=== PATIENT | female | born 1995 | race Hispanic/Latino ===

== ENCOUNTER 2023-01-21 22:08 | Day surgery (SDC) | payer OTHER ==
[2023-01-21 22:30] VITALS: BMI 29.9
[2023-01-21 23:09] LABS: Fetal Membranes Rupture No Membranes Rupture (No Rupture)
[2023-01-21] MEDS ORDERED: hydrALAZINE 20 MG/ML VIAL SLOW IVP PRN (23:22)
== END 2023-01-22 00:10 | disposition home or self-care (01) ==
LOC: CSHLD/OP 22:08
PROVIDERS: ATTEND Family Medicine
DX: O99.353 Diseases of the nervous system complicating pregnancy, third trimester (principal); R42 Dizziness and giddiness; Z3A.37 37 weeks gestation of pregnancy
CPT/HCPCS: 84112; 99283

== ENCOUNTER 2023-01-27 19:41 | Day surgery (SDC) | payer OTHER | END 2023-01-27 22:25 | disposition home or self-care (01) | LOC: CSHLD/OP 19:41 | PROVIDERS: ATTEND Family Medicine | DX: O47.1 False labor at or after 37 completed weeks of gestation (principal); Z79.899 Other long term (current) drug therapy; Z3A.37 37 weeks gestation of pregnancy | CPT/HCPCS: 99283 ==

== ENCOUNTER 2023-02-05 13:47 | Inpatient (IN) | payer OTHER ==
[2023-02-05] MEDS ORDERED: hydrALAZINE 20 MG/ML VIAL SLOW IVP PRN ×2 (15:01→23:02)
[2023-02-05] MEDS ORDERED: Promethazine HCl 25 MG/ML VIAL IM PRN (16:12)
[2023-02-05] MEDS ORDERED: Ibuprofen 800 MG TAB PO PRN (16:12)
[2023-02-05] MEDS ORDERED: Acetaminophen 500 MG TAB PO PRN (16:12)
[2023-02-05] MEDS ORDERED: fentaNYL 50 mcg/mL 1 mL Vial SLOW IVP PRN (16:12)
[2023-02-05] MEDS ORDERED: Docusate 100 MG CAP PO PRN (16:12)
[2023-02-05] MEDS ORDERED: Misoprostol 200 MCG TAB PR PRN (16:12)
[2023-02-05] MEDS ORDERED: Butorphanol Tartrate 1 MG/ML VIAL SLOW IVP PRN (16:12)
[2023-02-05] MEDS ORDERED: Methylergonovine 0.2 MG/ML VIAL IM PRN (16:12)
[2023-02-05] MEDS ORDERED: Ondansetron PF 4 MG/2 ML Vial IVP PRN ×2 (16:12→23:02)
[2023-02-05] MEDS ORDERED: Lidocaine 1% (PF) 30 ML VIAL SC PRN (16:12)
[2023-02-05] MEDS ORDERED: Carboprost 250 MCG/ML AMP IM PRN (16:12)
[2023-02-05] MEDS ORDERED: Tranexamic Acid 1,000 MG/10 ML VIAL IVP PRN (16:12)
[2023-02-05] MEDS ORDERED: Diphenoxylate HCl/Atropine Tablet PO PRN (16:12)
[2023-02-05] MEDS ORDERED: NS w/ Oxytocin 30 units 500 ML IV SCH ×3 (16:15)
[2023-02-05] MEDS ORDERED: Misoprostol 100 MCG TAB VAG SCH ×2 (16:15)
[2023-02-05] MEDS ORDERED: Lactated Ringer's 1,000 ML IV SCH (16:15)
[2023-02-05 16:56] VITALS: BMI 29.9
[2023-02-05 17:09] LABS: Hematocrit 32.6 % (34.9-44.5); Hemoglobin 10.2 g/dL (12.0-15.5); Mean Corpuscular HGB CONC 31.3 g/dL (32.0-36.0); Mean Corpuscular Volume 76.7 fl (81.6-98.3); Mean Platelet Volume 10.2 fl (7.4-10.4); Platelet Count 450 10x3/uL (150-450); RBC Distribution Width 14.6 % (11.5-14.5); Red Blood Cell (RBC) Count 4.25 10x6/uL (3.90-5.03)
[2023-02-05 17:38] LABS: Syphilis Antibody Nonreactive (Nonreactive); Syphilis Antibody Index 0.04 S/CO (<1.00 Non-Reactive)
[2023-02-05 17:39] LABS: HBSAg Index 0.15 S/CO (0-0.99); Hep B Surf Ag - L&D Non-Reactive S/CO (NonReactive)
[2023-02-05] MEDS ORDERED: Benzocaine-Menthol 82.5 ML CAN TOP PRN (23:02)
[2023-02-05] MEDS ORDERED: Preparation H Ointment 28 GM TUBE PR PRN (23:02)
[2023-02-05] MEDS ORDERED: traMADol HCl 50 MG TAB PO PRN (23:02)
[2023-02-05] MEDS ORDERED: Bisacodyl 10 MG SUPP PR PRN (23:02)
[2023-02-05] MEDS ORDERED: Milk Of Magnesia 30 ML UDCUP PO PRN (23:02)
[2023-02-05] MEDS ORDERED: Lanolin Ointment 7 GM TUBE TOP PRN (23:02)
[2023-02-05] MEDS ORDERED: diphenhydrAMINE 25 MG CAP PO PRN (23:02)
[2023-02-05] MEDS ORDERED: Boostrix 0.5 ML (Tdap) VIAL (>/=7 yrs of age) IM ONE (23:02)
[2023-02-05] MEDS ORDERED: Ibuprofen 800 MG TAB PO SCH (23:15)
[2023-02-06] MEDS: Acetaminophen 500 MG TAB PO SCH ×4 (00:36→23:15)
[2023-02-06] MEDS ORDERED: Ibuprofen 800 MG TAB PO SCH (06:00)
[2023-02-06] MEDS: Ferrous Sulfate 325 MG TAB PO SCH (07:31)
[2023-02-06] MEDS: Ibuprofen 800 MG TAB PO SCH ×3 (08:15→23:15)
[2023-02-06] MEDS: Prenatal Vitamin 1 TAB PO SCH (08:16)
[2023-02-06] MEDS: Docusate 100 MG CAP PO SCH ×2 (08:16→21:30)
[2023-02-07] MEDS: Acetaminophen 500 MG TAB PO SCH ×3 (05:20→12:13)
[2023-02-07] MEDS: Ferrous Sulfate 325 MG TAB PO SCH ×2 (07:37→07:38)
[2023-02-07] MEDS: Ibuprofen 800 MG TAB PO SCH (09:07)
[2023-02-07] MEDS: Prenatal Vitamin 1 TAB PO SCH (09:07)
[2023-02-07] MEDS: Docusate 100 MG CAP PO SCH (09:07)
[2023-02-07 09:16] VITALS: BP 125/74; TEMP 97.9
== END 2023-02-07 17:20 | disposition home or self-care (01) | DRG 807 ==
LOC: CSHLD/OP 13:47 → CSHLD 16:06 → CSHPP 22:46
PROVIDERS: ADMIT Family Medicine; ATTEND Family Medicine
PROC: 10E0XZZ Delivery of Products of Conception, External Approach (ICD-10-PCS; principal; 2023-02-05)
PROC: 0HQ9XZZ Repair Perineum Skin, External Approach (ICD-10-PCS; 2023-02-05)
DX: O70.0 First degree perineal laceration during delivery (principal); Z37.0 Single live birth; Z3A.39 39 weeks gestation of pregnancy
CPT/HCPCS: 36415; 85027; 86780; 86850; 86900; 86901; 87340; 99285; J2590